=== PATIENT | male | born 1960 | race Caucasian/White ===

== ENCOUNTER 2016-07-05 02:28 | Emergency (ER) | payer MEDICAID ==
[2016-07-05 02:52] VITALS: BP 115/65
[2016-07-05] MEDS ORDERED: Acetaminophen TAB* 325 MG PO ONE (06:00)
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
== END 2016-07-05 06:45 | disposition home or self-care (01) ==
LOC: ED 02:28
DX: S20.219A Contusion of unspecified front wall of thorax, initial encounter (principal); F10.129 Alcohol abuse with intoxication, unspecified; Y04.0XXA Assault by unarmed brawl or fight, initial encounter; Y93.9 Activity, unspecified; Y92.9 Unspecified place or not applicable; Y99.9 Unspecified external cause status
CPT/HCPCS: 99282; A9270-GY

== ENCOUNTER 2016-07-13 02:02 | Emergency (ER) | payer MEDICAID ==
[2016-07-13 02:07] VITALS: BP 113/78
--- NOTE | 2016-07-13 02:20 | ED ---
Tl Zuleta Billy, scribed for Luigi Ross MD on 07/13/16 at 0209 . HPI Chest Pain - HPI Summary HPI Summary: 56 year-old male coming to the ED with a complaint of constant left anterior chest pain starting "several hours" ago. Severity 9/10. He states that the pain radiates to his LUE and neck. He also reports left arm numbness. No cough. He has no other complaints. - History of Current Complaint Chief Complaint: EDChestPainROMI Time Seen by Provider: 07/13/16 02:04 Hx Obtained From: Family/Claims Manager Onset/Duration: Started Hours Ago, Still Present Timing: Constant Initial Severity: Moderate Current Severity: Moderate Pain Intensity: 9 Pain Scale Used: 0-10 Numeric Chest Pain Location: Left Anterior Chest Pain Radiates: Yes Chest Pain Radiates To:: Arm, Neck Aggravating Factor(s): Nothing Alleviating Factor(s): Nothing Associated Signs and Symptoms: Positive: Numbness. Negative: Cough - Additional Pertinent History Primary Care Physician: LIA - Allergy/Home Medications Allergies/Adverse Reactions: Allergies Allergy/AdvReac Type Severity Reaction Status Date / Time No Known Allergies Allergy Verified 01/25/15 23:21 PMH/Surg Hx/FS Hx/Imm Hx Endocrine/Hematology History: Denies: Hx Anticoagulant Therapy, Hx Diabetes, Hx Thyroid Disease Cardiovascular History: Reports: Hx Angina, Hx Myocardial Infarction - per pt, Other Cardiovascular Problems/Disorders - PT. STATES IRREGULAR HEARTBEAT Denies: Hx Congestive Heart Failure, Hx Coronary Artery Disease, Hx Hypercholesterolemia, Hx Hypertension, Hx Pacemaker/ICD Respiratory History: Reports: Hx Asthma, Hx Chronic Bronchitis, Hx Chronic Obstructive Pulmonary Disease (COPD), Hx Sleep Apnea, Other Respiratory Problems /Disorders - COPD GI History: Denies: Hx Ulcer, Other GI Disorders History: Denies: Hx Renal Disease, Other Problems/Disorders Musculoskeletal History: Reports: Hx Orthopedic Injury - multiple broken bones Sensory History: Reports: Hx Contacts or Glasses Opthamlomology History: Reports: Hx Contacts or Glasses Neurological History: Reports: 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 Facial bone reconstruction. Right ankle. Bilateral Cheek bone repair. Nose repaired Hx Anesthesia Reactions: No - Immunization History Date of Tetanus Vaccine: Unknown Date of Influenza Vaccine: UNK Infectious Disease History: No Infectious Disease History: Reports: Hx Hepatitis - Hep C per EMR Denies: Hx Clostridium Difficile, Hx Human Immunodeficiency Virus (HIV), Hx Shingles, Hx Tuberculosis, Traveled Outside the [place] in Last 30 Days - Family History Known Family History: Positive: Cardiac Disease, Other - Alcohol abuse - Social History Alcohol Use: Daily Alcohol Amount: drank some today Hx Substance Use: Yes Substance Use Type: Reports: Cocaine, Marijuana, Other Substance Use Comment - Amount & Last Used: Unknown on all substances. PT poor with drug-use information. Hx Tobacco Use: Yes Smoking Status (MU): Light Every Day Tobacco Smoker Type: Cigarettes Length of Time of Smoking/Using Tobacco: 2+PPd Review of Systems Positive: Chest Pain Negative: Cough Positive: Numbness All Other Systems Reviewed And Are Negative: Yes Physical Exam Triage Information Reviewed: Yes Vital Signs On Initial Exam: Initial Vitals Temp Pulse Resp BP Pulse Ox 97.2 F 64 16 113/78 98 07/13/16 02:03 07/13/16 02:03 07/13/16 02:03 07/13/16 02:03 07/13/16 02:03 Vital Signs Reviewed: Yes Appearance: Positive: No Pain Distress, Thin Skin: Positive: Warm Head/Face: Positive: Normal Head/Face Inspection Eyes: Positive: NELLY ENT: Positive: Hearing grossly normal Neck: Positive: Supple Respiratory/Lung Sounds: Positive: Clear to Auscultation, Breath Sounds Present , Other - upper lt ant cwt to palp, same as presenting pain Cardiovascular: Positive: RRR Abdomen Description: Positive: Nontender, Soft Bowel Sounds: Positive: Present Musculoskeletal: Positive: Strength/ROM Intact Neurological: Positive: Sensory/Motor Intact Diagnostics - Vital Signs Vital Signs Temp Pulse Resp BP Pulse Ox 07/13/16 02:03 97.2 F 64 16 113/78 98 - Laboratory Lab Statement: Any lab studies that have been ordered have been reviewed, and results considered in the medical decision making process. - EKG 0208 EKG Interpretation: NSR 98 bpm, PVC Re-Evaluation - Re-Evaluation First Eval Change: Improved - pt feels better, ekg at baseline, recurrent issue, pt wants to go home will d/c Chest Pain Course/Dx - Diagnoses Provider Diagnoses: Chest pain, Alcohol intoxication Discharge - Discharge Plan Condition: Stable Disposition: HOME Patient Education Materials: Chest Pain (ED), Alcohol Intoxication (ED) Referrals: Rosamaria Zeng FOAM RUBBER CURER [Primary Care Provider] - Additional Instructions: FOLLOW UP WITH YOUR PRIMARY CARE PROVIDER. EAT A WELL-BALANCED DIET, AND AVOID ALCOHOL CONSUMPTION. The documentation as recorded by the Tl potter Billy accurately reflects the service I personally performed and the decisions made by me, Luigi Ross MD.
== END 2016-07-13 02:25 | disposition home or self-care (01) ==
LOC: ED 02:02
DX: R07.9 Chest pain, unspecified (principal); F10.129 Alcohol abuse with intoxication, unspecified
CPT/HCPCS: 93005; 99282

== ENCOUNTER 2016-07-13 20:56 | Emergency (ER) | payer MEDICAID ==
[2016-07-13 23:14] LABS: Hematocrit 39 % (42-52); Hemoglobin 13.1 g/dl (14.0-18.0); Mean Corpuscular HGB Conc 33 g/dl (31-36); Mean Corpuscular Hemoglobin 34 pg (27-31); Mean Corpuscular Volume 102 fL (80-94); Mean Platelet Volume 11 um3 (7.4-10.4); Red Blood Count 3.82 10^6/ul (4.0-5.4); Red Cell Distribution Width 15 % (10.5-15); White Blood Count 6.4 10^3/ul (3.5-10.8)
--- NOTE | 2016-07-13 23:15 | RAD ---
Indication: Chest pain Single frontal view of the chest performed at 2257 hours was reviewed. Comparison is made with previous exam dated July 02, 2016. No mediastinal shift is noted. Heart is of normal size and configuration. Lung rosales appear clear. IMPRESSION: NO ACTIVE CARDIOPULMONARY DISEASE IS NOTED.
[2016-07-13 23:33] LABS: Albumin 3.7 g/dL (3.2-5.2); Calcium 8.7 mg/dL (8.6-10.3); EGFR African American 118.3 (>60); Potassium 3.5 mmol/L (3.5-5.0); Total Bilirubin 0.5 mg/dL (0.2-1.0); Total Protein 6.7 g/dL (6.4-8.9)
[2016-07-13 23:35] LABS: Comments Flag Yes
[2016-07-13 23:37] LABS: Add Diff/Slide Review? Slide Review Added; Troponin I 0.01 ng/mL (<0.04)
[2016-07-14] MEDS ORDERED: NS 0.9% 1000 ML* 1,000 ML IV ONE (00:11)
[2016-07-14 02:18] VITALS: BP 139/72
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
== END 2016-07-14 02:10 | disposition home or self-care (01) ==
LOC: ED 20:56
DX: R07.9 Chest pain, unspecified (principal)
CPT/HCPCS: 36415; 71010; 80053; 82550; 82553; 83605; 83874; 83880; 84484; 85025; 85610; 85730; 93005; 99282

== ENCOUNTER 2016-07-19 21:54 | Emergency (ER) | payer MEDICAID ==
[2016-07-19] MEDS ORDERED: Thiamine IV* 100 MG, Folic Acid IV* 1 MG, Multiple Vitamin IV ADULT* 10 ML in NS 0.9% 1... IV ONE ×8 (22:08)
[2016-07-19 22:44] LABS: Urine Bilirubin Negative (Negative); Urine Glucose Negative (Negative); Urine Nitrite Negative (Negative)
[2016-07-19 22:53] LABS: Benzodiazepine Urine Screen None Detected (None Detect)
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
--- NOTE | 2016-07-19 22:59 | RAD ---
INDICATION: Right knee pain COMPARISON: None TECHNIQUE: AP, lateral, tunnel, and sunrise were obtained. FINDINGS: The bony structures, joint spaces, and soft tissues are normal for age. IMPRESSION: NO ACUTE BONY FINDINGS.
[2016-07-19] MEDS ORDERED: Nicotine Inhaler* 10 MG AMP INH ONE (23:36)
[2016-07-19] MEDS ORDERED: Mouth Piece, Nicotine* 1 EACH CARTRIDGE ONE (23:37)
[2016-07-19] MEDS ORDERED: Nicotine Inhaler* 10 MG AMP ONE ×2 (23:37)
[2016-07-19 23:44] LABS: Hematocrit 37 % (42-52); Hemoglobin 12.4 g/dl (14.0-18.0); Mean Corpuscular HGB Conc 34 g/dl (31-36); Mean Corpuscular Hemoglobin 34 pg (27-31); Mean Corpuscular Volume 102 fL (80-94); Mean Platelet Volume 11 um3 (7.4-10.4); Red Blood Count 3.62 10^6/ul (4.0-5.4); Red Cell Distribution Width 15 % (10.5-15); White Blood Count 5.5 10^3/ul (3.5-10.8)
[2016-07-19 23:47] LABS: Add Diff/Slide Review? Slide Review Added; Comments Flag Yes
[2016-07-19] MEDS ORDERED: Tetan/Diph/Pertus SYR(Tdap)* 0.5 ML SYR(BOOSTRIX) use SYR IM ONE (23:52)
[2016-07-19 23:55] LABS: Alcohol 302 mg/dL (<10)
[2016-07-19 23:56] LABS: ALT 22 U/L (7-52); Albumin 4.3 g/dL (3.2-5.2); Alkaline Phosphatase 54 U/L (34-104); BUN/Creatinine Ratio 7.4 (8-20); Blood Urea Nitrogen 5 mg/dL (6-24); CO2 Carbon Dioxide 22 mmol/L (22-32); Calcium 9.2 mg/dL (8.6-10.3); Chloride 102 mmol/L (101-111); EGFR African American 155.1 (>60); EGFR Non-African American 120.6 (>60); Glucose 63 mg/dL (70-100); Sodium 133 mmol/L (133-145); Total Protein 7.3 g/dL (6.4-8.9)
[2016-07-20 00:42] LABS: Burr Cells 1+; Hypochromasia 1+; Macrocytosis 1+; Spherocytes 1+; Target Cells 1+
--- NOTE | 2016-07-20 00:52 | ED ---
Progress - EKG/XRAY/CT CT: normal brain Course/Dx - Course Course Of Treatment: pt discharged in stable condition - Diagnoses Provider Diagnoses: Scalp contusion, Abrasion
[2016-07-20 01:19] VITALS: BP 109/40
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
--- NOTE | 2016-09-26 09:52 | ED ---
I, Lobo Gillespie, scribed for Estela Heck MD on 07/20/16 at 0055 . Progress - Progress Note Progress Note: signout pt from Dr. Olivarez. Waiting for CT results. - Results/Orders Results/Orders: CT Brain WO: NAD. CT Maxillofacial WO: NAD. - EKG/XRAY/CT CT: normal brain Course/Dx - Course Course Of Treatment: pt discharged in stable condition - Diagnoses Provider Diagnoses: Scalp contusion, Abrasion The documentation as recorded by the fransiscoibJose Miguel espinal Benjamin accurately reflects the service I personally performed and the decisions made by me, Estela Heck MD.
== END 2016-07-20 01:18 | disposition home or self-care (01) ==
LOC: ED 21:54
DX: S00.03XA Contusion of scalp, initial encounter (principal); S00.01XA Abrasion of scalp, initial encounter; X58.XXXA Exposure to other specified factors, initial encounter; Y92.9 Unspecified place or not applicable
CPT/HCPCS: 36415; 70450; 70486; 71010; 80053; 80307; 80320; 81003; 85025; 90715; 99283; A9270-GY; G0480; J3411

== ENCOUNTER 2016-09-24 00:47 | Emergency (ER) | payer MEDICAID ==
[2016-09-24 01:42] LABS: Hematocrit 33 % (42-52); Hemoglobin 11.5 g/dl (14.0-18.0); Mean Corpuscular HGB Conc 34 g/dl (31-36); Mean Corpuscular Hemoglobin 33 pg (27-31); Mean Corpuscular Volume 95 fL (80-94); Mean Platelet Volume 11 um3 (7.4-10.4); Red Cell Distribution Width 13 % (10.5-15); White Blood Count 9.5 10^3/ul (3.5-10.8)
[2016-09-24 01:57] LABS: BUN/Creatinine Ratio 9.5 (8-20); Calcium 9.1 mg/dL (8.6-10.3); EGFR African American 140.7 (>60); EGFR Non-African American 109.4 (>60); Magnesium 1.8 mg/dL (1.9-2.7); Potassium 3.8 mmol/L (3.5-5.0); Total Bilirubin 0.8 mg/dL (0.2-1.0)
[2016-09-24 05:49] VITALS: BP 111/61
--- NOTE | 2016-09-24 06:19 | ED ---
Tonia Zuleta Michael, scribed for Luigi Ross MD on 09/24/16 at 0120 . HPI Chest Pain - HPI Summary HPI Summary: 56 y/o male was BIBA to the ED presenting with sharp chest pain that started today. The pt approached was at [facility] when he suddenly started to have diffuse chest pain. In the ambulance he was given 324mg ASA and 1x 0.4mg SL Nitro en route per nurse note. He also c/o generalized myalgia and dizziness. The pt reports to drinking alcohol all day. The PMHx is significant for dysrhythmia, COPD, and ETOH abuse. - History of Current Complaint Chief Complaint: EDChestPainROMI Time Seen by Provider: 09/24/16 00:57 Hx Obtained From: Patient, EMS, Medical Records Onset/Duration: Started Hours Ago, Still Present Timing: Constant Initial Severity: Moderate Current Severity: Moderate Pain Intensity: 5 Pain Scale Used: 0-10 Numeric Chest Pain Location: Diffuse Chest Pain Radiates: No Character: Sharp/Stabbing Aggravating Factor(s): Nothing Associated Signs and Symptoms: Positive: Chest Pain, Dizziness, Other: - myalgia - Additional Pertinent History Primary Care Physician: [id number] - Allergy/Home Medications Allergies/Adverse Reactions: Allergies Allergy/AdvReac Type Severity Reaction Status Date / Time No Known Allergies Allergy Verified 01/25/15 23:21 PMH/Surg Hx/FS Hx/Imm Hx Endocrine/Hematology History: Denies: Hx Anticoagulant Therapy, Hx Diabetes, Hx Thyroid Disease Cardiovascular History: Reports: Hx Angina, Hx Myocardial Infarction - per pt, Other Cardiovascular Problems/Disorders - PT. STATES IRREGULAR HEARTBEAT Denies: Hx Congestive Heart Failure, Hx Coronary Artery Disease, Hx Hypercholesterolemia, Hx Hypertension, Hx Pacemaker/ICD Respiratory History: Reports: Hx Asthma, Hx Chronic Bronchitis, Hx Chronic Obstructive Pulmonary Disease (COPD), Hx Sleep Apnea, Other Respiratory Problems /Disorders - COPD GI History: Reports: Hx Gastroesophageal Reflux Disease Denies: Hx Ulcer, Other GI Disorders History: Denies: Hx Renal Disease, Other Problems/Disorders Musculoskeletal History: Reports: Hx Orthopedic Injury - multiple broken bones Sensory History: Reports: Hx Contacts or Glasses Opthamlomology History: Reports: Hx Contacts or Glasses Neurological History: Reports: 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 Facial bone reconstruction. Right ankle. Bilateral Cheek bone repair. Nose repaired Hx Anesthesia Reactions: No - Immunization History Date of Tetanus Vaccine: Unknown Date of Influenza Vaccine: UNK Infectious Disease History: No Infectious Disease History: Reports: Hx Hepatitis - Hep C per EMR Denies: Hx Clostridium Difficile, Hx Human Immunodeficiency Virus (HIV), Hx Shingles, Hx Tuberculosis, Traveled Outside the [place] in Last 30 Days - Family History Known Family History: Positive: Cardiac Disease, Other - Alcohol abuse - Social History Occupation: Unemployed Lives: With Family Alcohol Use: Daily Alcohol Amount: drank some today Hx Substance Use: Yes Substance Use Type: Reports: Cocaine, Marijuana, Other Substance Use Comment - Amount & Last Used: Unknown on all substances. PT poor with drug-use information. Hx Tobacco Use: Yes Smoking Status (MU): Light Every Day Tobacco Smoker Type: Cigarettes Length of Time of Smoking/Using Tobacco: 2+PPd Review of Systems Positive: Chest Pain Positive: Myalgia Neurological: Other - dizziness All Other Systems Reviewed And Are Negative: Yes Physical Exam Triage Information Reviewed: Yes Vital Signs On Initial Exam: Initial Vitals Temp Pulse Resp BP Pulse Ox 98 F 69 16 125/65 98 09/24/16 01:01 09/24/16 01:01 09/24/16 01:01 09/24/16 01:01 09/24/16 01:01 Vital Signs Reviewed: Yes Appearance: Positive: No Pain Distress, Thin Skin: Positive: Warm Head/Face: Positive: Normal Head/Face Inspection Eyes: Positive: NELLY ENT: Positive: Hearing grossly normal Neck: Positive: Supple Respiratory/Lung Sounds: Positive: Breath Sounds Present, Decreased Breath Sounds Cardiovascular: Positive: RRR Abdomen Description: Positive: Nontender, Soft Bowel Sounds: Positive: Present Musculoskeletal: Positive: Strength/ROM Intact - [place] Coma Scale Coma Scale Total: 15 Diagnostics - Vital Signs Vital Signs Temp Pulse Resp BP Pulse Ox 09/24/16 01:01 98 F 69 16 125/65 98 - Laboratory Lab Results: Lab Results 09/24/16 09/24/16 Range/Units 01:30 01:30 WBC 9.5 (3.5-10.8) 10^3/ul RBC 3.50 L (4.0-5.4) 10^6/ul Hgb 11.5 L (14.0-18.0) g/dl Hct 33 L (42-52) % MCV 95 H (80-94) fL MCH 33 H (27-31) pg MCHC 34 (31-36) g/dl RDW 13 (10.5-15) % Plt Count 263 (150-450) 10^3/ul MPV 11 H (7.4-10.4) um3 Neut % (Auto) 49.1 (38-83) % Lymph % (Auto) 38.9 (25-47) % [place] % (Auto) 9.6 H (1-9) % Eos % (Auto) 1.4 (0-6) % Baso % (Auto) 1.0 (0-2) % Absolute Neuts (auto) 4.7 (1.5-7.7) 10^3/ul Absolute Lymphs (auto) 3.7 (1.0-4.8) 10^3/ul Absolute Monos (auto) 0.9 H (0-0.8) 10^3/ul Absolute Eos (auto) 0.1 (0-0.6) 10^3/ul Absolute Basos (auto) 0.1 (0-0.2) 10^3/ul Absolute Nucleated RBC 0 10^3/ul Nucleated RBC % 0.1 Sodium 135 (133-145) mmol/L Potassium 3.8 (3.5-5.0) mmol/L Chloride 100 L (101-111) mmol/L Carbon Dioxide 24 (22-32) mmol/L Anion Gap 11 (2-11) mmol/L BUN 7 (6-24) mg/dL Creatinine 0.74 (0.67-1.17) mg/dL Est GFR ( Amer) 140.7 (>60) Est GFR (Non-Af Amer) 109.4 (>60) BUN/Creatinine Ratio 9.5 (8-20) Glucose 99 (70-100) mg/dL Calcium 9.1 (8.6-10.3) mg/dL Magnesium 1.8 L (1.9-2.7) mg/dL Total Bilirubin 0.80 (0.2-1.0) mg/dL AST 49 H (13-39) U/L ALT 27 (7-52) U/L Alkaline Phosphatase 59 (34-104) U/L Total Protein 7.0 (6.4-8.9) g/dL Albumin 4.0 (3.2-5.2) g/dL Globulin 3.0 (2-4) g/dL Albumin/Globulin Ratio 1.3 (1-3) Serum Alcohol 200 H (<10) mg/dL Result Diagrams: 09/24/16 01:30 09/24/16 01:30 Lab Statement: Any lab studies that have been ordered have been reviewed, and results considered in the medical decision making process. - EKG EK EKG Rhythm: Sinus Rhythm - [address] Segment: Normal Ectopy: None Re-Evaluation - Re-Evaluation First Eval Change: Improved - pain free, feels well, wants to go home Chest Pain Course/Dx - Diagnoses Provider Diagnoses: Chest pain, Alcohol abuse Discharge - Discharge Plan Condition: Stable Disposition: HOME Patient Education Materials: Chest Pain (ED), Abuse of Alcohol (ED) Referrals: Rosamaria Zeng, LEAD ASSEMBLER [Primary Care Provider] - Additional Instructions: You should follow up with Dr. Zeng within the next 2-3 days. The documentation as recorded by the Tonia potter Michael accurately reflects the service I personally performed and the decisions made by me, Luigi Ross MD.
== END 2016-09-24 05:48 | disposition home or self-care (01) ==
LOC: ED 00:47
DX: F10.10 Alcohol abuse, uncomplicated (principal); R07.9 Chest pain, unspecified; R42 Dizziness and giddiness; F17.210 Nicotine dependence, cigarettes, uncomplicated
CPT/HCPCS: 36415; 80053; 80320; 83735; 85025; 93005; 99284; G0480

== ENCOUNTER 2016-09-25 19:03 | Emergency (ER) | payer MEDICAID ==
--- NOTE | 2016-09-25 21:22 | ED ---
Tl Zuleta Billy, scribed for Luigi Ross MD on 09/25/16 at 2000 . HPI Chest Pain - HPI Summary HPI Summary: Patient is a 56 year-old male coming to [facility] presenting with diffuse chest pain for 2 days. Pain severity 6/10. He was seen in the ED yesterday and was given NTG with improvement. He denies any SOB at this time. He also reports left hand pain. - History of Current Complaint Chief Complaint: EDChestPainROMI Time Seen by Provider: 09/25/16 19:23 Hx Obtained From: Patient Onset/Duration: Started Days Ago Timing: Constant Initial Severity: Moderate Current Severity: Moderate Pain Intensity: 6 Pain Scale Used: 0-10 Numeric Chest Pain Location: Diffuse Chest Pain Radiates: No Aggravating Factor(s): Nothing Alleviating Factor(s): NTG 123 Associated Signs and Symptoms: Positive: Chest Pain. Negative: Shortness of Breath - Additional Pertinent History Primary Care Physician: LIA - Allergy/Home Medications Allergies/Adverse Reactions: Allergies Allergy/AdvReac Type Severity Reaction Status Date / Time No Known Allergies Allergy Verified 01/25/15 23:21 PMH/Surg Hx/FS Hx/Imm Hx Endocrine/Hematology History: Denies: Hx Anticoagulant Therapy, Hx Diabetes, Hx Thyroid Disease Cardiovascular History: Reports: Hx Angina, Hx Myocardial Infarction - per pt, Other Cardiovascular Problems/Disorders - PT. STATES IRREGULAR HEARTBEAT Denies: Hx Congestive Heart Failure, Hx Coronary Artery Disease, Hx Hypercholesterolemia, Hx Hypertension, Hx Pacemaker/ICD Respiratory History: Reports: Hx Asthma, Hx Chronic Bronchitis, Hx Chronic Obstructive Pulmonary Disease (COPD), Hx Sleep Apnea, Other Respiratory Problems /Disorders - COPD GI History: Reports: Hx Gastroesophageal Reflux Disease Denies: Hx Ulcer, Other GI Disorders History: Denies: Hx Renal Disease, Other Problems/Disorders Musculoskeletal History: Reports: Hx Orthopedic Injury - multiple broken bones Sensory History: Reports: Hx Contacts or Glasses Opthamlomology History: Reports: Hx Contacts or Glasses Neurological History: Reports: 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 Facial bone reconstruction. Right ankle. Bilateral Cheek bone repair. Nose repaired Hx Anesthesia Reactions: No - Immunization History Date of Tetanus Vaccine: Unknown Date of Influenza Vaccine: UNK Infectious Disease History: No Infectious Disease History: Reports: Hx Hepatitis - Hep C per EMR Denies: Hx Clostridium Difficile, Hx Human Immunodeficiency Virus (HIV), Hx Shingles, Hx Tuberculosis, Traveled Outside the [place] in Last 30 Days - Family History Known Family History: Positive: Cardiac Disease, Other - Alcohol abuse - Social History Alcohol Use: Daily Alcohol Amount: drank some today Hx Substance Use: Yes Substance Use Type: Reports: Cocaine, Marijuana, Other Substance Use Comment - Amount & Last Used: Unknown on all substances. PT poor with drug-use information. Hx Tobacco Use: Yes Smoking Status (MU): Light Every Day Tobacco Smoker Type: Cigarettes Length of Time of Smoking/Using Tobacco: 2+PPd Review of Systems Negative: Fever Positive: Chest Pain Negative: Shortness Of Breath Positive: Arthralgia - left hand All Other Systems Reviewed And Are Negative: Yes Physical Exam Triage Information Reviewed: Yes Vital Signs On Initial Exam: Initial Vitals Temp Pulse Resp BP Pulse Ox 98.5 F 86 16 147/84 98 09/25/16 19:13 09/25/16 19:13 09/25/16 19:13 09/25/16 19:13 09/25/16 19:13 Vital Signs Reviewed: Yes Appearance: Positive: No Pain Distress - beligerent in ed to staff, Thin Head/Face: Positive: Normal Head/Face Inspection Eyes: Positive: NELLY ENT: Positive: Hearing grossly normal Neck: Positive: Supple Respiratory/Lung Sounds: Positive: Breath Sounds Present Cardiovascular: Positive: RRR Abdomen Description: Positive: Nontender, Soft Bowel Sounds: Positive: Present Musculoskeletal: Positive: Other - mild diffuse lt hand swelling, no deformity, from Neurological: Positive: Sensory/Motor Intact, Alert, Oriented to Person Place, Time Psychiatric: Positive: Anxious Diagnostics - Vital Signs Vital Signs Temp Pulse Resp BP Pulse Ox 09/25/16 19:13 98.5 F 86 16 147/84 98 - Laboratory Lab Statement: Any lab studies that have been ordered have been reviewed, and results considered in the medical decision making process. - Radiology Left hand x-ray Xray Interpretation: No Acute Changes Radiology Interpretation Completed By: ED Physician - EKG 2022 EKG Interpretation: NSR 97 bpm, occasional PVC Re-Evaluation - Re-Evaluation First Eval Re-Evaluation Time: 21:23 Comment: Imaging reviewed. Chest Pain Course/Dx - Diagnoses Provider Diagnoses: Hand contusion Discharge - Discharge Plan Condition: Stable Disposition: HOME Patient Education Materials: Contusion in Adults (ED) Referrals: Rosamaria Zeng, WEB SERVICES DEVELOPER [Primary Care Provider] - The documentation as recorded by the Tl potter Billy accurately reflects the service I personally performed and the decisions made by me, Luigi Ross MD.
--- NOTE | 2016-09-25 21:49 | RAD ---
Indication: LEFT hand pain without known injury. Previous traumatic injury to the fifth finger. Comparison: January 18, 2013 LEFT hand and April 30, 2014 LEFT fifth finger. Technique: AP and lateral views LEFT hand Report: Negative for fracture or malalignment. Joint space narrowing and osteophytosis as well as mild periarticular soft tissue swelling at the fifth proximal interphalangeal joint. The remaining articulations are without significant arthropathic change. IMPRESSION: 1. No acute traumatic injury evident. 2. 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
[2016-09-25 22:11] VITALS: BP 120/72
== END 2016-09-25 21:36 | disposition home or self-care (01) ==
LOC: ED 19:03
DX: S60.222A Contusion of left hand, initial encounter (principal); R07.9 Chest pain, unspecified; M79.642 Pain in left hand; F17.210 Nicotine dependence, cigarettes, uncomplicated; X58.XXXA Exposure to other specified factors, initial encounter; Y93.89 Activity, other specified; Y92.89 Other specified places as the place of occurrence of the external cause
CPT/HCPCS: 93005; 99282

== ENCOUNTER 2016-10-05 11:10 | Emergency (ER) | payer MEDICAID ==
[2016-10-05 11:34] VITALS: BP 135/76
[2016-10-05] MEDS ORDERED: Ibuprofen TAB* 600 MG PO ONE (12:43)
--- NOTE | 2016-10-05 12:54 | RAD ---
INDICATION: Left ankle injury COMPARISON: Left lower extremity June 13, 2010 TECHNIQUE: AP, lateral, and oblique views were obtained. FINDINGS: There is interval change in the trabecular pattern of the body of the calcaneus suggesting a nondisplaced fracture. The ankle mortise is intact. There is mild diffuse soft tissue swelling. IMPRESSION: FINDINGS SUSPICIOUS FOR A FRACTURE THE BODY OF THE CALCANEUS
[2016-10-05] MEDS ORDERED: HYDROcodone/ACETAMIN 5-325 MG* 1 TAB PO ONE (13:46)
--- NOTE | 2016-12-20 17:11 | ED ---
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 He can bear weight on the foot if he walks on his toes, but the pain has just gotten worse. He has mild swelling and bruising without N/ T. Skin is intact. - History of Current Complaint Chief Complaint: EDExtremityLower Stated Complaint: ANKLE INJURY Time Seen by Provider: 10/05/16 11:35 Hx Obtained From: Patient Mechanism Of Injury: Blunt Trauma - ground Onset of Pain: Immediate Onset/Duration: Still Present Severity Initially: Moderate Severity Currently: Moderate Pain Intensity: 5 Timing: Constant Location: Is Discrete @ - left heel Character Of Pain: Sharp, Aching Associated Signs And Symptoms: Positive: Swelling - mild, Bruising Aggravating Factor(s): Standing Alleviating Factor(s): Rest Able to Bear Weight: Yes - with pain - Allergies/Home Medications Allergies/Adverse Reactions: Allergies Allergy/AdvReac Type Severity Reaction Status Date / Time No Known Allergies Allergy Verified 01/25/15 23:21 PMH/Surg Hx/FS Hx/Imm Hx Endocrine/Hematology History: Denies: Hx Anticoagulant Therapy, Hx Diabetes, Hx Thyroid Disease Cardiovascular History: Reports: Hx Angina, Hx Myocardial Infarction - per pt, Other Cardiovascular Problems/Disorders - PT. STATES IRREGULAR HEARTBEAT Denies: Hx Congestive Heart Failure, Hx Coronary Artery Disease, Hx Hypercholesterolemia, Hx Hypertension, Hx Pacemaker/ICD Respiratory History: Reports: Hx Asthma, Hx Chronic Bronchitis, Hx Chronic Obstructive Pulmonary Disease (COPD), Hx Sleep Apnea, Other Respiratory Problems /Disorders - COPD GI History: Reports: Hx Gastroesophageal Reflux Disease Denies: Hx Ulcer, Other GI Disorders History: Denies: Hx Renal Disease, Other Problems/Disorders Musculoskeletal History: Reports: Hx Orthopedic Injury - multiple broken bones Sensory History: Reports: Hx Contacts or Glasses Opthamlomology History: Reports: Hx Contacts or Glasses Neurological History: Reports: 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 Facial bone reconstruction. Right ankle. Bilateral Cheek bone repair. Nose repaired Hx Anesthesia Reactions: No - Immunization History Date of Tetanus Vaccine: Unknown Date of Influenza Vaccine: UNK Infectious Disease History: No Infectious Disease History: Reports: Hx Hepatitis - Hep C per EMR Denies: Hx Clostridium Difficile, Hx Human Immunodeficiency Virus (HIV), Hx Shingles, Hx Tuberculosis, Traveled Outside the [place] in Last 30 Days - Family History Known Family History: Positive: Cardiac Disease, Other - Alcohol abuse - Social History Occupation: Unemployed Lives: Alone Alcohol Use: Daily Alcohol Amount: drank some today Hx Substance Use: Yes Substance Use Type: Reports: None Substance Use Comment - Amount & Last Used: Unknown on all substances. PT poor with drug-use information. Hx Tobacco Use: Yes Smoking Status (MU): Light Every Day Tobacco Smoker Type: Cigarettes Length of Time of Smoking/Using Tobacco: 2+PPd Cessation Counseling: Patient Advised to Stop Review of Systems Positive: Myalgia, Edema - left heel Positive: Bruising - mild left heel Negative: Paresthesia, Numbness All Other Systems Reviewed And Are Negative: Yes Physical Exam Triage Information Reviewed: Yes Vital Signs On Initial Exam: Initial Vitals Temp Pulse Resp BP Pulse Ox 98.9 F 91 16 135/76 95 10/05/16 11:25 10/05/16 11:25 10/05/16 11:25 10/05/16 11:25 10/05/16 11:25 Vital Signs Reviewed: Yes Appearance: Positive: Well-Appearing, Well-Nourished, Pain Distress Skin: Positive: Warm, Skin Color Reflects Adequate Perfusion, Dry, Soft Head/Face: Positive: Normal Head/Face Inspection Eyes: Positive: EOMI, NELLY, Conjunctiva Clear Respiratory/Lung Sounds: Positive: Breath Sounds Present Cardiovascular: Positive: RRR Musculoskeletal: Positive: Strength/ROM Intact - left ankle with pain, Pain @ - TTP left calcaneus, Edema Left - left heel Neurological: Positive: Sensory/Motor Intact, Alert, Oriented to Person Place, Time, NV Bundle Intact Distally, Abnormal Gait Psychiatric: Positive: Affect/Mood Appropriate AVPU Assessment: Alert Procedures - Splinting Location: left lower extremity Pre-Made Type: Cam working boot Splint: Cam walking boot Pre-Proc Neuro Vasc Exam: normal Post-Proc Neuro Vasc Exam: normal Diagnostics - Vital Signs Vital Signs Temp Pulse Resp BP Pulse Ox 10/05/16 14:09 98.5 F 110 18 10/05/16 11:25 98.9 F 91 16 135/76 95 - Laboratory Lab Statement: Any lab studies that have been ordered have been reviewed, and results considered in the medical decision making process. - Radiology No standard instances Xray Interpretation: Positive (See Comments) Radiology Interpretation Completed By: Radiologist - calcaneus fracture Lower Extremity Course/Dx - Diagnoses Differential Diagnosis/HQI/PQRI: Positive: Arthritis, Bursitis, Cellulitis, Contusion, Fracture (Closed), Infection, Sprain, Strain Provider Diagnoses: Left calcaneal fracture Discharge - Discharge Plan Condition: Stable Disposition: HOME Prescriptions: HYDROcodone/ACETAMIN 5-325 MG* [[place] 5-325 TAB*] 1 tab PO Q6H PRN #16 tab MDD 4 PRN Reason: Pain Patient Education Materials: Calcaneal Fracture (ED) Referrals: Hector Madrigal MD [Medical Doctor] - Rosamaria Zeng NP [Primary Care Provider] - Additional Instructions: Please wear your boot at all times and use the crutches to keep weight off your foot. Elevate your foot above your heart and take 600mg of ibuprofen three times daily with meals for the next 5-7 days to decrease swelling and pain. Use the pain medication as needed. Call Dr. Madrigal's office today for an orthopedic evaluation appointment. Return to the emergency department if symptoms worsen.
== END 2016-10-05 14:09 | disposition home or self-care (01) ==
LOC: ED 11:10
DX: S92.002A Unspecified fracture of left calcaneus, initial encounter for closed fracture (principal); X50.9XXA Other and unspecified overexertion or strenuous movements or postures, initial encounter; Y93.9 Activity, unspecified; Y92.9 Unspecified place or not applicable; F17.210 Nicotine dependence, cigarettes, uncomplicated
CPT/HCPCS: 99282; A9270-GY

== ENCOUNTER 2017-06-04 10:59 | Inpatient (IN) | payer OTHER ==
[2017-06-04 12:05] LABS: Hematocrit 43 % (42-52); Hemoglobin 14.4 g/dl (14.0-18.0); Mean Corpuscular HGB Conc 34 g/dl (31-36); Mean Corpuscular Hemoglobin 33 pg (27-31); Mean Corpuscular Volume 97 fL (80-94); Mean Platelet Volume 11 um3 (7.4-10.4); Red Blood Count 4.38 10^6/ul (4.0-5.4); Red Cell Distribution Width 13 % (10.5-15); White Blood Count 11.5 10^3/ul (3.5-10.8)
[2017-06-04 12:10] LABS: Add Diff/Slide Review? Slide Review Added; Comments Flag Yes
[2017-06-04 12:20] LABS: ALT 19 U/L (7-52); AST 33 U/L (13-39); Albumin 4.8 g/dL (3.2-5.2); Alkaline Phosphatase 61 U/L (34-104); Anion Gap 14 mmol/L (2-11); BUN/Creatinine Ratio 7.5 (8-20); Blood Urea Nitrogen 7 mg/dL (6-24); CO2 Carbon Dioxide 21 mmol/L (22-32); Calcium 9.8 mg/dL (8.6-10.3); Chloride 97 mmol/L (101-111); EGFR African American 107.7 (>60); EGFR Non-African American 83.7 (>60); Globulin 3.5 g/dL (2-4); Glucose 111 mg/dL (70-100); Potassium 3.5 mmol/L (3.5-5.0); Sodium 132 mmol/L (133-145); Total Protein 8.3 g/dL (6.4-8.9)
[2017-06-04 12:32] LABS: Troponin I 0.06 ng/mL (<0.04)
--- NOTE | 2017-06-04 12:49 | RAD ---
INDICATION: Left foot injury. COMPARISON: Comparison is made with a prior x-ray study of the left ankle from October 05, 2016. TECHNIQUE: 3 views of the left foot were obtained. FINDINGS: The bones are normal alignment. No fracture is seen. Joint spaces appear maintained. There are small calcaneal spurs. IMPRESSION: NO EVIDENCE FOR FRACTURE, IF THE PATIENT'S SYMPTOMS PERSIST RECOMMEND FOLLOW-UP IMAGING.
[2017-06-04 13:11] LABS: Acetaminophen < 15 mcg/mL; Salicylate < 2.50 mg/dL (<30)
--- NOTE | 2017-06-04 15:00 | ED ---
Leon Zuleta Gabriel, scribed for Alexander Olvera MD on 06/04/17 at 1113 . Altered Mental Status - HPI Summary HPI Summary: This patient is a 57 year old M BIBA to [facility] accompanied by a curve cleaner. The patient is unresponsive and will not open his eyes. The guard accompanying him reports that the patient has been screaming and singing recently but says the patient has suffered no trauma. Patient brought in by EMS for AMS, at the retirement, was told that his sentence was extended and stopped taking his medication. Per EMS meds stopped 5 days ago. Patient stopped talking to staff today and will not open his eyes. No obvious distress or injury. Patient refusing to speak. Moves all four extremities. triage note. LEVEL 5 CAVEAT: HPI limited due to the patient being unresponsive. - History Of Current Complaint Stated Complaint: UNRESPONSIVE Time Seen by Provider: 06/04/17 11:05 Hx Obtained From: Medical Records, Other: - curve cleaner Onset/Duration: Still Present Timing: Constant Character: Responsiveness - Allergies/Home Medications Allergies/Adverse Reactions: Allergies Allergy/AdvReac Type Severity Reaction Status Date / Time No Known Allergies Allergy Verified 01/25/15 23:21 Home Medications: Home Medications Folic Acid TAB* [Folvite TAB*] 1 mg PO DAILY 06/04/17 [History Confirmed ] Metoprolol Tartrate TAB* [Lopressor TAB*] 50 mg PO BID 06/04/17 [History Confirmed 06/04/17] Multivitamins/Minerals TAB* [Theragran/minerals TAB*] 1 tab PO DAILY 06/04/17 [ History Confirmed 06/04/17] Omeprazole CAP* [Prilosec CAP* 20 MG] 20 mg PO DAILY 06/04/17 [History Confirmed 06/04/17] Sertraline* [Zoloft*] 100 mg PO DAILY 06/04/17 [History Confirmed 06/04/17] Thiamine TAB* [Vitamin B-1 TAB*] 100 mg PO DAILY 06/04/17 [History Confirmed 07/21] cloNIDine TAB* [Catapres 0.1 MG TAB*] 0.1 mg PO BID 06/04/17 [History Confirmed 06/04/17] PMH/Surg Hx/FS Hx/Imm Hx Previously Healthy: No Endocrine/Hematology History: Denies: Hx Anticoagulant Therapy, Hx Diabetes, Hx Thyroid Disease Cardiovascular History: Reports: Hx Angina, Hx Myocardial Infarction - per pt, Other Cardiovascular Problems/Disorders - PT. STATES IRREGULAR HEARTBEAT Denies: Hx Congestive Heart Failure, Hx Coronary Artery Disease, Hx Hypercholesterolemia, Hx Hypertension, Hx Pacemaker/ICD Respiratory History: Reports: Hx Asthma, Hx Chronic Bronchitis, Hx Chronic Obstructive Pulmonary Disease (COPD), Hx Sleep Apnea, Other Respiratory Problems /Disorders - COPD GI History: Reports: Hx Gastroesophageal Reflux Disease Denies: Hx Ulcer, Other GI Disorders History: Denies: Hx Renal Disease, Other Problems/Disorders Musculoskeletal History: Reports: Hx Orthopedic Injury - multiple broken bones Sensory History: Reports: Hx Contacts or Glasses Opthamlomology History: Reports: Hx Contacts or Glasses Neurological History: Reports: 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 Facial bone reconstruction. Right ankle. Bilateral Cheek bone repair. Nose repaired Hx Anesthesia Reactions: No - Immunization History Date of Tetanus Vaccine: Unknown Date of Influenza Vaccine: UNK Infectious Disease History: Reports: Hx Hepatitis - Hep C per EMR Denies: Hx Clostridium Difficile, Hx Human Immunodeficiency Virus (HIV), Hx Shingles, Hx Tuberculosis - Family History Known Family History: Positive: Cardiac Disease, Other - Alcohol abuse - Social History Alcohol Use: Daily Alcohol Amount: drank some today Hx Substance Use: Yes Substance Use Type: Reports: None Substance Use Comment - Amount & Last Used: Unknown on all substances. PT poor with drug-use information. Hx Tobacco Use: Yes Smoking Status (MU): Light Every Day Tobacco Smoker Type: Cigarettes Length of Time of Smoking/Using Tobacco: 2+PPd Review of Systems - ROS Summary Review of Systems Summary: LEVEL 5 CAVEAT: ROS limited due to the patient being unresponsive. Psychological: Other - AMS All Other Systems Reviewed And Are Negative: No Physical Exam - Summary Physical Exam Summary: Appearance: The patient is well-nourished in no acute distress and in no acute pain. Patient resists having his eyes passively opened. Skin: The skin is warm and dry and skin color reflects adequate perfusion. Abrasion on left knee old and left elbow that appear to be a few days old. HEENT: ~The head is normocephalic and atraumatic. The pupils are equal and reactive. The conjunctivae are clear and without drainage. ~Nares are patent and without drainage. ~Mouth reveals moist mucous membranes and the throat is without erythema and exudate. ~The external ears are intact. The ear canals are patent and without drainage. The tympanic membranes are intact. Neck: the neck is supple with full range of motion and non-tender. There are no carotid bruits. ~There is no neck vein distension. Respiratory: Chest is non-tender. ~Lungs are clear to auscultation and breath sounds are symmetrical and equal. Cardiovascular: Heart is regular rate and rhythm. ~There is no murmur or rub auscultated. ~~There is no peripheral edema and pulses are symmetrical and equal. Abdomen: The abdomen is soft and non-tender. ~There are normal bowel sounds heard in all four quadrants and there is no organomegaly palpated. Musculoskeletal: There is no back tenderness noted. ~Extremities are non-tender with full range of motion. ~There is good capillary refill. ~There is no peripheral edema or calf tenderness elicited. tenderness to palpation on left heel Neurological: Patient is alert and oriented to person, place and time. ~The patient has symmetrical motor strength in all four extremities. ~Cranial nerves are grossly intact. Deep tendon reflexes are symmetrical and equal in all four extremities. Psychiatric: The patient has an appropriate affect and does not exhibit any anxiety or depression. Triage Information Reviewed: Yes Vital Signs On Initial Exam: Initial Vitals BP 145/82 06/04/17 11:04 Vital Signs Reviewed: Yes Completion Of Physical Exam Limited Due To: Level 5 Diagnostics - Vital Signs Vital Signs Temp Pulse Resp BP Pulse Ox 06/04/17 13:00 134/98 06/04/17 12:30 19 143/113 06/04/17 12:00 17 129/85 06/04/17 11:30 150 17 137/79 79 06/04/17 11:11 80 15 154/76 98 06/04/17 11:09 98.1 F 79 16 145/82 100 06/04/17 11:05 80 14 100 06/04/17 11:04 145/82 - Laboratory Lab Results: Lab Results 06/04/17 06/04/17 Range/Units 11:53 11:53 WBC 11.5 H (3.5-10.8) 10^3/ul RBC 4.38 (4.0-5.4) 10^6/ul Hgb 14.4 (14.0-18.0) g/dl Hct 43 (42-52) % MCV 97 H (80-94) fL MCH 33 H (27-31) pg MCHC 34 (31-36) g/dl RDW 13 (10.5-15) % Plt Count 375 (150-450) 10^3/ul MPV 11 H (7.4-10.4) um3 Neut % (Auto) 71.3 (38-83) % Lymph % (Auto) 17.2 L (25-47) % Otero % (Auto) 11.0 H (1-9) % Eos % (Auto) 0.2 (0-6) % Baso % (Auto) 0.3 (0-2) % Absolute Neuts (auto) 8.2 H (1.5-7.7) 10^3/ul Absolute Lymphs (auto) 2.0 (1.0-4.8) 10^3/ul Absolute Monos (auto) 1.3 H (0-0.8) 10^3/ul Absolute Eos (auto) 0 (0-0.6) 10^3/ul Absolute Basos (auto) 0 (0-0.2) 10^3/ul Absolute Nucleated RBC 0 10^3/ul Nucleated RBC % 0 Sodium 132 L (133-145) mmol/L Potassium 3.5 (3.5-5.0) mmol/L Chloride 97 L (101-111) mmol/L Carbon Dioxide 21 L (22-32) mmol/L Anion Gap 14 H (2-11) mmol/L BUN 7 (6-24) mg/dL Creatinine 0.93 (0.67-1.17) mg/dL Est GFR ( Amer) 107.7 (>60) Est GFR (Non-Af Amer) 83.7 (>60) BUN/Creatinine Ratio 7.5 L (8-20) Glucose 111 H (70-100) mg/dL Calcium 9.8 (8.6-10.3) mg/dL Total Bilirubin 1.00 (0.2-1.0) mg/dL AST 33 (13-39) U/L ALT 19 (7-52) U/L Alkaline Phosphatase 61 (34-104) U/L Troponin I 0.06 H* (<0.04) ng/mL Total Protein 8.3 (6.4-8.9) g/dL Albumin 4.8 (3.2-5.2) g/dL Globulin 3.5 (2-4) g/dL Albumin/Globulin Ratio 1.4 (1-3) Salicylates < 2.50 (<30) mg/dL Acetaminophen < 15 mcg/mL Result Diagrams: 06/04/17 11:53 06/04/17 11:53 Lab Statement: Any lab studies that have been ordered have been reviewed, and results considered in the medical decision making process. - Radiology Foot Xray Radiology Interpretation Completed By: Radiologist - NO EVIDENCE FOR FRACTURE, IF THE PATIENT'S SYMPTOMS PERSIST RECOMMEND FOLLOW-UP IMAGING. ED physician has reviewed this radiology report and agrees. - EKG 11:44 Cardiac Rate: NL EKG Rhythm: Sinus Rhythm - NSR at 85 BPM EKG Interpretation: flipped T waves in 2,3 and AVF. Consider ischemia. Altered Mental Statu Course/Dx - Course Course Of Treatment: After a short while, Mr. Murrell began to be more cooperative and had a long list of C/Os. He has been in altercations with the guards a couple of times in the last week and complains of multiple pains including chest pain. He is vague about the chest pain but he has flopped t- waves in the inferior leads which are new and an indeterminante trop. He had a pretty clean cath about a year ago. The hospitalists are evaluating him at this time. - Diagnoses Discharge Diagnoses: Chest pain - Provider Notifications Discussed Care Of Patient With: Usama Walton Time Discussed With Above Provider: 13:03 Instructed by Provider To: Other - Discussed patient care with Dr. Walton, he has agreed to admit the patient for further care Discharge - Discharge Plan Condition: Stable Disposition: ADMITTED TO [facility] documentation as recorded by the Leon potter Gabriel accurately reflects the service I personally performed and the decisions made by me, Alexander Olvera MD.
[2017-06-04] MEDS ORDERED: Aspirin TAB* 325 MG PO ONE (15:07)
[2017-06-04] MEDS: NS 0.9% 1000 ML* 1,000 ML IV SCH (15:50)
[2017-06-04] MEDS: Acetaminophen TAB* 325 MG PO PRN (15:50)
[2017-06-04] MEDS: Ketorolac TAB * 10 MG TAB PO PRN (15:51)
--- NOTE | 2017-06-04 16:18 | ECHO ---
Patient: MINISTREIO TRINIDAD [facility] Rec#: [id number] : 1960 Date: 06/04/2017 Age: 57y Height: 187.96 cm / 74.0 in Weight: 76.66 kg / 169.0 lbs Sex: M BSA: 2.02 Room#: [facility] Admit Date#: 06/04/2017 Type: Inpatient Referring: Claudia Clark Reading: Apollo Murillo DO Cardiac Nurse Specialist[facility] Indication: Chest pain, elevated troponin, BP: 150/86 HR: 78 Rhythm: NSR Findings History: VT, COPD, GERD, smoker, hepatitis C. Technical Comments: The study quality is fair. The study is technically limited due to poor acoustic windows. Completed at 1545. Left Ventricle: The left ventricular chamber size is normal. There is no left ventricular hypertrophy. Global left ventricular wall motion and contractility are within normal limits. There is normal left ventricular systolic function. The estimated ejection fraction is 55-60%. There is no consistent Doppler evidence of clinically significant diastolic dysfunction. Left Atrium: The left atrial chamber size is normal. Right Ventricle: The right ventricular chamber size and systolic function are within normal limits. Right Atrium: The right atrial cavity size is normal. Aortic Valve: The aortic valve is trileaflet. The aortic valve leaflets are mildly thickened. There is aortic annular calcification.that is mild There is no evidence of aortic regurgitation. There is no evidence of aortic stenosis. Mitral Valve: Mild mitral annular calcification present. The mitral valve leaflets are mildly thickened. There is a trace of mitral regurgitation. There is no evidence of mitral stenosis. Tricuspid Valve: The tricuspid valve leaflets are normal. There is trace tricuspid regurgitation. No pulmonary hypertension is noted. There is no tricuspid stenosis. Pulmonic Valve: The pulmonic valve appears normal. There is a trace pulmonic regurgitation. There is no pulmonic stenosis. Pericardium: There is no significant pericardial effusion. Aorta: There is no dilatation of the ascending aorta. There is no dilatation of the aortic arch. The aortic root is normal in size. Pulmonary Artery: The main pulmonary artery appears normal. Venous: The inferior vena cava appears normal in size. There is a greater than 50% respiratory change in the inferior vena cava dimension. Conclusions The left ventricular chamber size is normal. There is no left ventricular hypertrophy. Global left ventricular wall motion and contractility are within normal limits. There is normal left ventricular systolic function. The estimated ejection fraction is 55-60%. The left atrial chamber size is normal. The right ventricular chamber size and systolic function are within normal limits. No significant valvular abnormalities noted Normal estimate PA systolic pressure Compared to prior study from 11/2013, no significant changes noted. Measurements Name Value Normal Range RVIDd (AP) 2D 2.7 cm (0.9 - 2.6) RVDdMajor (2D) 3.5 cm (2.2 - 4.4) RAd ISD 4CH 4.2 cm (3.4 - 4.9) RA (A4C)W 3.9 cm (2.9 - 4.6) IVSd (2D) 0.9 cm (0.6 - 1) LVPWd (2D) 0.7 cm (0.6 - 1) LVIDd (2D) 4.9 cm (3.6 - 5.4) LVIDs (2D) 3.4 cm - LV FS (2D) 32 % (25 - 45) Aortic Annulus 2.1 cm (1.4 - 2.6) Ao root diameter (2D) 3.3 cm (2.1 - 3.5) Ascending Ao 3.2 cm (2.1 - 3.4) Aortic arch 2.4 cm (1.8 - 3.4) LA dimension (AP) 2D 3.1 cm (2.3 - 3.8) LAd ISD 4CH 3.7 cm (2.9 - 5.3) LA ISD 4CH W 3.2 cm (2.5 - 4.5) Name Value Normal Range LA ESV SP 4CH (A/L) 69 ml - LA ESV SP 4CH (MOD) 46 ml - Name Value Normal Range MV E-wave Vmax 0.66 m/sec - MV deceleration time 308.3 msec - MV A-wave Vmax 0.59 m/sec - MV E:A ratio 1.12 ratio - LV septal e' Vmax 0.08 m/sec - LV lateral e' Vmax 0.14 m/sec - LV E:e' septal ratio 8.25 ratio - LV E:e' lateral ratio 4.71 ratio - Name Value Normal Range AV Vmax 1.34 m/sec - AV VTI 23.59 cm - AV peak gradient 7.19 mmHg - AV mean gradient 4.71 mmHg - LVOT Vmax 1.12 m/sec - LVOT VTI 18.76 cm - LVOT peak gradient 4.99 mmHg - LVOT mean gradient 2.22 mmHg - JOHN Vmax 1.19 m/sec - Name Value Normal Range TR Vmax 1.9 m/sec - TR peak gradient 14 mmHg - RAP 3 mmHg - RVSP 17 mmHg - IVC diameter 1.4 cm - Name Value Normal Range PV Vmax 1.32 m/sec - PV peak gradient 7.05 mmHg -
[2017-06-04] MEDS: Metoprolol Tartrate TAB* 50 mg PO SCH (18:17)
[2017-06-04] MEDS ORDERED: CMCS: Melatonin (NF) 3 MG TAB PO PRN (19:07)
[2017-06-04] MEDS ORDERED: Potassium Chlor TAB* 20 MEQ TAB.ER PO ONE (19:08)
[2017-06-04] MEDS ORDERED: KCL 20 MEQ/100 ML IVPREMIX* 20 MEQ/100 ML BAG IV ONE (19:08)
[2017-06-04 19:41] LABS: TSH (Thyroid Stimulating Horm) 1.32 mcIU/mL (0.34-5.60)
[2017-06-04] MEDS: cloNIDine TAB* 0.1 MG PO SCH (20:57)
[2017-06-04] MEDS ORDERED: Metoprolol Tartrate TAB* 50 mg PO SCH (21:00)
--- NOTE | 2017-06-04 21:27 | PN ---
Hospitalist Progress Note Called by Nursing Staff reports 13 run v-tach, and remains tachycardic with heart rate up to the 130's. Nursing to give patient home dose of metoprolol 50mg now. Magnesium level added to labwork. 1829: evaluated patient at the bedside patient remains tachycardic rate 120's to 200. Rhythm on the monitor appears to be A-Fib, patient with no documented history of A-FIB; STAT EKG obtained. Patient denies shortness of breath or palpitations. Cardiology consulted will see patient in the AM. Will replace potassium. Suspect rebound tachycardia from abrupt discontinuation of metoprolol. Feel that the patient will self convert. 2099 Patient noted to be in sinus rhythm; will repeat EKG; will hold on anticoagulation at this time.
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
[2017-06-05] MEDS: NS 0.9% 1000 ML* 1,000 ML IV SCH (02:08)
[2017-06-05 05:59] LABS: Hematocrit 37 % (42-52); Hemoglobin 12.6 g/dl (14.0-18.0); Mean Corpuscular HGB Conc 35 g/dl (31-36); Mean Corpuscular Hemoglobin 34 pg (27-31); Mean Corpuscular Volume 97 fL (80-94); Mean Platelet Volume 11 um3 (7.4-10.4); Red Blood Count 3.75 10^6/ul (4.0-5.4); Red Cell Distribution Width 13 % (10.5-15); White Blood Count 10.3 10^3/ul (3.5-10.8)
[2017-06-05 06:20] LABS: BUN/Creatinine Ratio 13.9 (8-20); Blood Urea Nitrogen 11 mg/dL (6-24); CO2 Carbon Dioxide 20 mmol/L (22-32); Calcium 9.3 mg/dL (8.6-10.3); Chloride 105 mmol/L (101-111); EGFR Non-African American 101.1 (>60); Glucose 96 mg/dL (70-100); Sodium 133 mmol/L (133-145)
[2017-06-05 06:38] LABS: Comments Flag Yes
[2017-06-05 06:39] LABS: Add Diff/Slide Review? Slide Review Added
[2017-06-05 06:48] LABS: Anion Gap 8 mmol/L (2-11)
[2017-06-05 07:16] LABS: Platelet Morphology Large
[2017-06-05] MEDS: Omeprazole CAP* 20 MG PO SCH (08:07)
[2017-06-05] MEDS: Multivitamins/Minerals TAB PO SCH (08:07)
[2017-06-05] MEDS: Metoprolol Tartrate TAB* 50 mg PO SCH (08:08)
[2017-06-05] MEDS: cloNIDine TAB* 0.1 MG PO SCH ×2 (08:08→21:17)
[2017-06-05] MEDS: Aspirin Low Dose CHEW TAB* 81 MG PO SCH (08:08)
[2017-06-05] MEDS: Thiamine TAB* 100 MG TAB PO SCH (08:08)
[2017-06-05] MEDS: Folic Acid TAB* 1 MG PO SCH (08:08)
[2017-06-05] MEDS: Acetaminophen TAB* 325 MG PO PRN (08:08)
[2017-06-05] MEDS: Ketorolac TAB * 10 MG TAB PO PRN ×2 (08:28→16:17)
[2017-06-05] MEDS ORDERED: Sertraline* 100 MG TAB PO SCH (09:00)
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
--- NOTE | 2017-06-05 14:41 | CONS ---
CARDIOLOGY CONSULTATION REPORT: ADDENDUM: I did discuss the risk of cardioembolic events related to paroxysmal AFib; given his CHADS-VASc2 score of 0 and his difficult psychosocial situation and risks for injury and bleeding, I suggested aspirin 81 mg a day for now. In the past, we had recommended a referral for EP evaluation for his VT, which he declined. Given that his VT seems to be well controlled on beta-blockers, I would continue that. If he is unable to tolerate beta-blockers, then consider gradually tapering the beta xena and switching him to a calcium channel xena. Further recommendations will depend on his clinical course. Consider followup with Dr. Bliss as an outpatient. [id number]/[facility] #: [id number] SAUL
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
[2017-06-05] MEDS ORDERED: Metoprolol Tartrate IV* 1 MG/ML 5 ML VIAL IV ONE (16:55)
[2017-06-05] MEDS ORDERED: LORazepam INJ* 2 MG/ML 1 ML VIAL IV PUSH ONE (16:58)
[2017-06-05] MEDS ORDERED: Metoprolol Tartrate IV* 1 MG/ML 5 ML VIAL ONE (17:02)
[2017-06-05] MEDS ORDERED: LORazepam INJ* 2 MG/ML 1 ML VIAL ONE (17:02)
[2017-06-05] MEDS ORDERED: Diltiazem IV* 5 MG/ML 5 ML VIAL (for loading dose/IV Push) (25 MG) IV SLOW PU ONE (17:23)
[2017-06-05] MEDS ORDERED: Diltiazem DRIP* 100 MG/100 ML ADDV.BAG IVPB ONE (17:39)
[2017-06-05] MEDS ORDERED: Diltiazem IV* 5 MG/ML 5 ML VIAL (for loading dose/IV Push) (25 MG) ONE (17:40)
[2017-06-05] MEDS ORDERED: Diltiazem DRIP* 100 MG/100 ML ADDV.BAG IVPB SCH (18:00)
[2017-06-05] MEDS: Diltiazem TAB* 30 MG PO SCH (19:36)
[2017-06-05] MEDS ORDERED: Metoprolol Tartrate TAB* 50 mg PO SCH (21:00)
[2017-06-05] MEDS ORDERED: LORazepam INJ* 2 MG/ML 1 ML VIAL IV PUSH PRN (23:00)
[2017-06-06] MEDS: Diltiazem TAB* 30 MG PO SCH ×3 (00:42→11:49)
[2017-06-06 05:58] LABS: Hematocrit 38 % (42-52); Hemoglobin 12.8 g/dl (14.0-18.0); Mean Corpuscular HGB Conc 34 g/dl (31-36); Mean Corpuscular Hemoglobin 33 pg (27-31); Mean Corpuscular Volume 97 fL (80-94); Mean Platelet Volume 11 um3 (7.4-10.4); Red Blood Count 3.86 10^6/ul (4.0-5.4); Red Cell Distribution Width 13 % (10.5-15); White Blood Count 10.3 10^3/ul (3.5-10.8)
[2017-06-06 06:10] LABS: Comments Flag Yes
[2017-06-06 06:21] LABS: BUN/Creatinine Ratio 7.2 (8-20); Calcium 9.1 mg/dL (8.6-10.3); EGFR African American 122.8 (>60); EGFR Non-African American 95.5 (>60); Magnesium 2.1 mg/dL (1.9-2.7); Potassium 3.6 mmol/L (3.5-5.0)
[2017-06-06] MEDS: Omeprazole CAP* 20 MG PO SCH (07:38)
[2017-06-06] MEDS: cloNIDine TAB* 0.1 MG PO SCH (07:38)
[2017-06-06] MEDS: Folic Acid TAB* 1 MG PO SCH (07:38)
[2017-06-06] MEDS: Ketorolac TAB * 10 MG TAB PO PRN (07:38)
[2017-06-06] MEDS: Multivitamins/Minerals TAB PO SCH (07:38)
[2017-06-06] MEDS: Thiamine TAB* 100 MG TAB PO SCH (07:38)
[2017-06-06] MEDS: Aspirin Low Dose CHEW TAB* 81 MG PO SCH (07:38)
[2017-06-06] MEDS ORDERED: Potassium Chlor TAB* 20 MEQ TAB.ER PO SCH (09:00)
[2017-06-06] MEDS ORDERED: Metoprolol Succinate XL TAB* 50 MG PO SCH (09:00)
[2017-06-06] MEDS ORDERED: Sertraline* 100 MG TAB PO SCH (09:00)
[2017-06-06] MEDS ORDERED: Pneumococcal *Vac Polyvalent 0.5 ML VIAL IM ONE (12:00)
[2017-06-06] MEDS ORDERED: Influenza VAC *QUAD* 2017-18* 0.5 ML SYRINGE IM ONE (12:00)
[2017-06-06 12:09] VITALS: BP 120/67
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
[2017-06-06] MEDS ORDERED: Diltiazem CD CAP* 120 MG PO SCH (18:00)
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
== END 2017-06-06 17:35 | disposition home or self-care (01) | DRG 201 ==
LOC: ED 10:59 → EEVIPCON 13:05 → MEDTELE 13:05 → OBSVTOIN 06-06 10:05
PROVIDERS: ADMIT Internal Medicine; ATTEND Internal Medicine
DX: I48.91 Unspecified atrial fibrillation (principal); F33.1 Major depressive disorder, recurrent, moderate; I47.2 Ventricular tachycardia; I42.8 Other cardiomyopathies; F60.2 Antisocial personality disorder; I10 Essential (primary) hypertension; F10.10 Alcohol abuse, uncomplicated; R07.9 Chest pain, unspecified; M25.572 Pain in left ankle and joints of left foot; F19.21 Other psychoactive substance dependence, in remission; F60.0 Paranoid personality disorder; Z82.49 Family history of ischemic heart disease and other diseases of the circulatory system; Z91.14 Patient's other noncompliance with medication regimen; Z87.891 Personal history of nicotine dependence; Z79.899 Other long term (current) drug therapy
CPT/HCPCS: 36415; 80048; 80053; 80329; 83735; 84443; 84484; 85025; 90686; 90732; 93005; 93306; A9270-GY; G0378; G0480; J2060; J3480; J3490

== ENCOUNTER 2017-06-10 10:37 | Emergency (ER) | payer OTHER ==
[2017-06-10] MEDS ORDERED: Aspirin Low Dose CHEW TAB* 81 MG PO ONE (11:26)
--- NOTE | 2017-06-10 12:14 | RAD ---
HISTORY: Chest pain COMPARISONS: July 19, 2016 VIEWS: 1: frontal portable view of the chest at 11:40 AM FINDINGS: LINES AND TUBES: None. CARDIOMEDIASTINAL SILHOUETTE: The cardiomediastinal silhouette is normal for portable technique. PLEURA: The costophrenic angles are sharp. No pleural abnormalities are noted. LUNG PARENCHYMA: The lungs are clear. ABDOMEN: The upper abdomen is clear. There is no subphrenic gas. BONES AND SOFT TISSUES: No bone or soft tissue abnormalities are noted. IMPRESSION: NO ACTIVE CARDIOPULMONARY DISEASE.
[2017-06-10 12:26] LABS: Hematocrit 40 % (42-52); Hemoglobin 13.7 g/dl (14.0-18.0); Mean Corpuscular HGB Conc 35 g/dl (31-36); Mean Corpuscular Hemoglobin 33 pg (27-31); Mean Corpuscular Volume 97 fL (80-94); Red Cell Distribution Width 13 % (10.5-15); White Blood Count 5.3 10^3/ul (3.5-10.8)
[2017-06-10 12:41] LABS: Albumin 4.2 g/dL (3.2-5.2); BUN/Creatinine Ratio 8.5 (8-20); Calcium 9.4 mg/dL (8.6-10.3); EGFR African American 147.1 (>60); EGFR Non-African American 114.4 (>60); Globulin 3.3 g/dL (2-4); Potassium 4.1 mmol/L (3.5-5.0); Total Bilirubin 0.5 mg/dL (0.2-1.0); Total Protein 7.5 g/dL (6.4-8.9)
[2017-06-10 12:44] LABS: Comments Flag Yes; Mean Platelet Volume 10 um3 (7.4-10.4); Troponin I 0.01 ng/mL (<0.04)
[2017-06-10 13:03] LABS: T4 8.73 mcg/mL (6.09-12.23)
[2017-06-10 13:07] LABS: TSH (Thyroid Stimulating Horm) 0.87 mcIU/mL (0.34-5.60)
[2017-06-10] MEDS ORDERED: Acetaminophen TAB* 325 MG PO ONE (13:38)
[2017-06-10 13:46] LABS: Urine Bilirubin Negative (Negative); Urine Glucose Negative (Negative); Urine Nitrite Negative (Negative)
[2017-06-10] MEDS ORDERED: Lidocaine 2% VISCOUS* 15 ML UDC PO ONE (15:18)
[2017-06-10] MEDS ORDERED: Al Hydrox/Mg Hydrox/Simet LIQ* 30 ML UDC PO ONE (15:18)
[2017-06-10 15:24] VITALS: BP 114/82
[2017-06-10] MEDS ORDERED: Metoprolol Succinate XL TAB* 50 MG PO ONE (15:47)
[2017-06-10] MEDS ORDERED: Diltiazem TAB* 60 MG PO ONE (15:48)
[2017-06-10] MEDS ORDERED: Diltiazem TAB* 60 MG ONE (15:51)
[2017-06-10] MEDS ORDERED: Metoprolol Tartrate TAB* 50 mg ONE (15:51)
--- NOTE | 2017-06-12 18:31 | ED ---
Too Zuleta Angela, scribed for Odilon Olivarez MD on 06/10/17 at 1115 . HPI Chest Pain - HPI Summary HPI Summary: This pt is a 57 y/o male presenting to [facility] via EMS from [facility] c /o left sided chest pain since last night. Pt reports that his chest pain radiates to his jaw. He currently rates his pain 8-9 out of 10 in severity. Pt additionally c/o weakness and episodes of dizziness. He denies SOB today. Per staff members, pt has not been eating well or taken his medications for the past 4 days. Pt has also not been drinking water very much. PMHx includes COPD, FL, GERD. - History of Current Complaint Chief Complaint: EDChestPainROMI Time Seen by Provider: 06/10/17 11:13 Hx Obtained From: Patient Onset/Duration: Started Days Ago - 1, Still Present Timing: Lasting Days - 1 Current Severity: Severe Pain Intensity: 8 Pain Scale Used: 0-10 Numeric Chest Pain Location: Left Anterior Chest Pain Radiates: Yes Chest Pain Radiates To:: Jaw Associated Signs and Symptoms: Positive: Weakness, Dizziness, Other: - POS: decreased PO intake, non-compliant with medications.. Negative: Shortness of Breath - Additional Pertinent History Primary Care Physician: [id number] - Allergy/Home Medications Allergies/Adverse Reactions: Allergies Allergy/AdvReac Type Severity Reaction Status Date / Time No Known Allergies Allergy Verified 01/25/15 23:21 PMH/Surg Hx/FS Hx/Imm Hx Endocrine/Hematology History: Denies: Hx Anticoagulant Therapy, Hx Diabetes, Hx Thyroid Disease Cardiovascular History: Reports: Hx Angina, Hx Myocardial Infarction - per pt, Other Cardiovascular Problems/Disorders - PT. STATES IRREGULAR HEARTBEAT Denies: Hx Congestive Heart Failure, Hx Coronary Artery Disease, Hx Hypercholesterolemia, Hx Hypertension, Hx Pacemaker/ICD Respiratory History: Reports: Hx Asthma, Hx Chronic Bronchitis, Hx Chronic Obstructive Pulmonary Disease (COPD), Hx Sleep Apnea, Other Respiratory Problems /Disorders - COPD GI History: Reports: Hx Gastroesophageal Reflux Disease Denies: Hx Ulcer, Other GI Disorders History: Denies: Hx Renal Disease, Other Problems/Disorders Musculoskeletal History: Reports: Hx Orthopedic Injury - multiple broken bones Sensory History: Reports: Hx Contacts or Glasses - reading Denies: Hx Hearing Aid Opthamlomology History: Reports: Hx Contacts or Glasses - reading Neurological History: Reports: 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 Facial bone reconstruction. Right ankle. Bilateral Cheek bone repair. Nose repaired Hx Anesthesia Reactions: No - Immunization History Date of Tetanus Vaccine: Unknown Date of Influenza Vaccine: UNK Infectious Disease History: No Infectious Disease History: Reports: Hx Hepatitis Denies: Hx Clostridium Difficile, Hx Human Immunodeficiency Virus (HIV), Hx Shingles, Hx Tuberculosis, Traveled Outside the [place] in Last 30 Days - Family History Known Family History: Positive: Cardiac Disease, Other - Alcohol abuse - Social History Alcohol Use: None Alcohol Amount: drank some today Hx Substance Use: Yes Substance Use Type: Reports: None Substance Use Comment - Amount & Last Used: Unknown on all substances. PT poor with drug-use information. Hx Tobacco Use: Yes Smoking Status (MU): Former Smoker Type: Cigarettes Length of Time of Smoking/Using Tobacco: 2+PPd Review of Systems Constitutional: Other - decreased PO intake, non-compliant with medications Negative: Fever, Chills Positive: Chest Pain Negative: Shortness Of Breath Neurological: Other - dizziness Positive: Weakness All Other Systems Reviewed And Are Negative: Yes Physical Exam - Summary Physical Exam Summary: VITAL SIGNS: Reviewed. GENERAL: Patient is a well-developed and nourished male who is lying comfortable in the stretcher. Patient is not in any acute respiratory distress. HEAD AND FACE: No signs of trauma. No ecchymosis, hematomas or skull depressions. No sinus tenderness. EYES: PERRLA, EOMI x 2, No injected conjunctiva, no nystagmus. EARS: Hearing grossly intact. Ear canals and tympanic membranes are within normal limits. MOUTH: Oropharynx within normal limits. NECK: Supple, trachea is midline, no adenopathy, no JVD, no carotid bruit, no c- spine tenderness, neck with full ROM. CHEST: Symmetric, no tenderness at palpation LUNGS: Clear to auscultation bilaterally. No wheezing or crackles. CVS: Regular rate and rhythm, S1 and S2 present, no murmurs or gallops appreciated. ABDOMEN: Soft, non-tender. No signs of distention. No rebound no guarding, and no masses palpated. Bowel sounds are normal. EXTREMITIES: FROM in all major joints, no edema, no cyanosis or clubbing. NEURO: Alert and oriented x 3. No acute neurological deficits. Speech is normal and follows commands. SKIN: Dry and warm Triage Information Reviewed: Yes Vital Signs On Initial Exam: Initial Vitals Temp Pulse Resp BP Pulse Ox 99 F 88 20 129/83 96 06/10/17 11:00 06/10/17 11:00 06/10/17 11:00 06/10/17 11:00 06/10/17 11:00 Vital Signs Reviewed: Yes Diagnostics - Vital Signs Vital Signs Temp Pulse Resp BP Pulse Ox 06/10/17 11:00 99 F 88 20 129/83 96 - Laboratory Lab Results: Lab Results 06/10/17 06/10/17 06/10/17 Range/Units 12:00 12:00 12:00 WBC 5.3 (3.5-10.8) 10^3/ul RBC 4.10 (4.0-5.4) 10^6/ul Hgb 13.7 L (14.0-18.0) g/dl Hct 40 L (42-52) % MCV 97 H (80-94) fL MCH 33 H (27-31) pg MCHC 35 (31-36) g/dl RDW 13 (10.5-15) % Plt Count 399 (150-450) 10^3/ul MPV 10 (7.4-10.4) um3 Neut % (Auto) 45.4 (38-83) % Lymph % (Auto) 37.1 (25-47) % Bucks % (Auto) 11.7 H (1-9) % Eos % (Auto) 4.8 (0-6) % Baso % (Auto) 1.0 (0-2) % Absolute Neuts (auto) 2.4 (1.5-7.7) 10^3/ul Absolute Lymphs (auto) 2.0 (1.0-4.8) 10^3/ul Absolute Monos (auto) 0.6 (0-0.8) 10^3/ul Absolute Eos (auto) 0.3 (0-0.6) 10^3/ul Absolute Basos (auto) 0.1 (0-0.2) 10^3/ul Absolute Nucleated RBC 0 10^3/ul Nucleated RBC % 0.1 Sodium 136 (133-145) mmol/L Potassium 4.1 (3.5-5.0) mmol/L Chloride 104 (101-111) mmol/L Carbon Dioxide 26 (22-32) mmol/L Anion Gap 6 (2-11) mmol/L BUN 6 (6-24) mg/dL Creatinine 0.71 (0.67-1.17) mg/dL Est GFR ( Amer) 147.1 (>60) Est GFR (Non-Af Amer) 114.4 (>60) BUN/Creatinine Ratio 8.5 (8-20) Glucose 114 H (70-100) mg/dL Calcium 9.4 (8.6-10.3) mg/dL Total Bilirubin 0.50 (0.2-1.0) mg/dL AST 19 (13-39) U/L ALT 14 (7-52) U/L Alkaline Phosphatase 57 (34-104) U/L Total Creatine Kinase 84 (10-223) U/L CK-MB (CK-2) 0.9 (0.6-6.3) ng/mL Troponin I 0.01 (<0.04) ng/mL B-Natriuretic Peptide 13 ( - 100) pg/mL Total Protein 7.5 (6.4-8.9) g/dL Albumin 4.2 (3.2-5.2) g/dL Globulin 3.3 (2-4) g/dL Albumin/Globulin Ratio 1.3 (1-3) TSH 0.87 (0.34-5.60) mcIU/mL Thyroxine (T4) 8.73 (6.09-12.23) mcg/mL Urine Color Urine Appearance Urine pH (5-9) Ur Specific [place] (1.010-1.030) Urine Protein (Negative) Urine Ketones (Negative) Urine Blood (Negative) Urine Nitrate (Negative) Urine Bilirubin (Negative) Urine Urobilinogen (Negative) Ur Leukocyte Esterase (Negative) Urine Glucose (Negative) Urine Ascorbic Acid (Negative) 06/10/17 06/10/17 Range/Units 13:31 14:28 WBC (3.5-10.8) 10^3/ul RBC (4.0-5.4) 10^6/ul Hgb (14.0-18.0) g/dl Hct (42-52) % MCV (80-94) fL MCH (27-31) pg MCHC (31-36) g/dl RDW (10.5-15) % Plt Count (150-450) 10^3/ul MPV (7.4-10.4) um3 Neut % (Auto) (38-83) % Lymph % (Auto) (25-47) % Bucks % (Auto) (1-9) % Eos % (Auto) (0-6) % Baso % (Auto) (0-2) % Absolute Neuts (auto) (1.5-7.7) 10^3/ul Absolute Lymphs (auto) (1.0-4.8) 10^3/ul Absolute Monos (auto) (0-0.8) 10^3/ul Absolute Eos (auto) (0-0.6) 10^3/ul Absolute Basos (auto) (0-0.2) 10^3/ul Absolute Nucleated RBC 10^3/ul Nucleated RBC % Sodium (133-145) mmol/L Potassium (3.5-5.0) mmol/L Chloride (101-111) mmol/L Carbon Dioxide (22-32) mmol/L Anion Gap (2-11) mmol/L BUN (6-24) mg/dL Creatinine (0.67-1.17) mg/dL Est GFR ( Amer) (>60) Est GFR (Non-Af Amer) (>60) BUN/Creatinine Ratio (8-20) Glucose (70-100) mg/dL Calcium (8.6-10.3) mg/dL Total Bilirubin (0.2-1.0) mg/dL AST (13-39) U/L ALT (7-52) U/L Alkaline Phosphatase (34-104) U/L Total Creatine Kinase (10-223) U/L CK-MB (CK-2) (0.6-6.3) ng/mL Troponin I 0.03 (<0.04) ng/mL B-Natriuretic Peptide ( - 100) pg/mL Total Protein (6.4-8.9) g/dL Albumin (3.2-5.2) g/dL Globulin (2-4) g/dL Albumin/Globulin Ratio (1-3) TSH (0.34-5.60) mcIU/mL Thyroxine (T4) (6.09-12.23) mcg/mL Urine Color [place] Urine Appearance Cloudy Urine pH 6.0 (5-9) Ur Specific [place] 1.019 (1.010-1.030) Urine Protein Negative (Negative) Urine Ketones Trace H (Negative) Urine Blood Negative (Negative) Urine Nitrate Negative (Negative) Urine Bilirubin Negative (Negative) Urine Urobilinogen Positive H (Negative) Ur Leukocyte Esterase Negative (Negative) Urine Glucose Negative (Negative) Urine Ascorbic Acid * H (Negative) Result Diagrams: 06/10/17 12:00 06/10/17 12:00 Lab Statement: Any lab studies that have been ordered have been reviewed, and results considered in the medical decision making process. - Radiology Chest XR Xray Interpretation: No Acute Changes - IMPRESSION: No active cardiopulmonary disease. ED physician has reviewed this radiology report and agrees. Radiology Interpretation Completed By: Radiologist - EKG 1151 Cardiac Rate: NL EKG Rhythm: Sinus Rhythm - at 67 bpm EKG Interpretation: No ST elevation Chest Pain Course/Dx - Course Assessment/Plan: This pt is a 57 y/o male presenting to [facility] via EMS from [facility] c/o left sided chest pain since last night. Pt reports that his chest pain radiates to his jaw. He currently rates his pain 8-9 out of 10 in severity. Pt additionally c/o weakness and episodes of dizziness. He denies SOB today. Per staff members, pt has not been eating well or taken his medications for the past 4 days. Pt has also not been drinking water very much. PMHx includes COPD, FL, GERD. Test results without any significant abnormalities except for chronic slight anemia, troponin 1 is 0.00 and troponin 2 is 0.03. Urinalysis is negative for UTI. Chest XR shows no active cardiopulmonary disease. Since the troponin is negative. I discussed the test results and findings with the pt, he does not want to go back because he thinks people are trying to poison him in senior care. I explained to the pt that he needs to take medications as indicated by Dr. Walton, however he is not sure he will take them. Otherwise, the pt will be discharged home with follow up from PCP. - Chest Pain Differential Diagnosis/HQI/PQRI: Acute FL, ACS, Angina, CHF, Chest Wall, GI Disease, Lower Respiratory Infection - Diagnoses Provider Diagnoses: Chest pain Discharge - Discharge Plan Condition: Stable Disposition: HOME Patient Education Materials: Chest Pain (ED) Referrals: No Primary Care Phys,NOPCP [Primary Care Provider] - [facility] [place] [facility]IAN REFERRAL [Outside] Additional Instructions: Please follow up with your primary care provider. RETURN TO THE ED FOR ANY WORSENING OR NEW SYMPTOMS. The documentation as recorded by the Too potter Angela accurately reflects the service I personally performed and the decisions made by , Odilon Olivarez MD.
== END 2017-06-10 15:29 | disposition home or self-care (01) ==
LOC: ED 10:37
DX: R07.9 Chest pain, unspecified (principal); I25.2 Old myocardial infarction; Z91.19 Patient's noncompliance with other medical treatment and regimen; J44.9 Chronic obstructive pulmonary disease, unspecified; F43.10 Post-traumatic stress disorder, unspecified; F32.9 Major depressive disorder, single episode, unspecified; F41.9 Anxiety disorder, unspecified; K21.9 Gastro-esophageal reflux disease without esophagitis
CPT/HCPCS: 36415; 71010; 80053; 81003; 82550; 82553; 83880; 84436; 84443; 84484; 85025; 93005; 99282; A9270-GY

== ENCOUNTER → 2019-11-02 | Emergency (ER) | payer MEDICAID ==
[~2019-11-02] MED LIST: Haloperidol 5 mg/ml SDV IV/IM 5 MG/ML AMP IM ONE; Haloperidol 5 mg/ml SDV IV/IM 5 MG/ML AMP ONE; LORazepam 2 mg VIAL 1 ml IM ONE; LORazepam 2 mg VIAL 1 ml ONE; diPHENhydraMINE IV 50 MG/ML 1 ml VIAL (BENADRYL) IM ONE; diPHENhydraMINE IV 50 MG/ML 1 ml VIAL (BENADRYL) ONE; diPHENhydraMINE IV 50 MG/ML 1 ml VIAL (BENADRYL) SLOW PUSH ONE
[2019-11-02 23:00] VITALS: BP 110/59
[2019-11-04 00:25] LABS: ABS Basophils 0.1 10^3/ul (0-0.2); ABS Lymphocytes 1.8 10^3/ul (1.0-4.8); ABS Monocytes 0.9 10^3/ul (0-0.8); Hematocrit 40 % (42-52); Hemoglobin 12.9 g/dL (14.0-18.0); Mean Corpuscular HGB Conc 33 g/dL (31-36); Mean Corpuscular Hemoglobin 33 pg (27-31); Mean Corpuscular Volume 102 fL (80-94); Mean Platelet Volume 10.6 fL (7.4-10.4); Platelet Count 308 10^3/uL (150-450); Red Blood Count 3.89 10^6 /uL (4.18-5.48); Red Cell Distribution Width 15 % (10-15); White Blood Count 18.9 10^3/uL (3.5-10.8)
[2019-11-04 00:26] LABS: Lymphocyte % 9.3 %
[2019-11-04 00:27] LABS: Albumin 4.4 g/dL (3.2-5.2); Albumin/Globulin Ratio 1.4 (1-3); Alkaline Phosphatase 4 U/L (34-104); Anion Gap 17 mmol/L (2-11); BUN/Creatinine Ratio 17.7 (8-20); Blood Urea Nitrogen 17 mg/dL (6-24); CO2 Carbon Dioxide 15 mmol/L (22-32); Calcium 8.9 mg/dL (8.6-10.3); Chloride 102 mmol/L (101-111); EGFR Non-African American 80.2 (>60); Globulin 3.1 g/dL (2-4); Glucose 122 mg/dL (70-100); Sodium 134 mmol/L (135-145); Total Protein 7.5 g/dL (6.4-8.9)
[2019-11-04 00:28] LABS: ALT 16 U/L (7-52); AST 35 U/L (13-39); Acetaminophen < 15 mcg/mL; Alcohol, S 291 mg/dL (<10); Salicylate < 10.00 mg/dL (<30)
== END | disposition home or self-care (01) ==
LOC: ED 07:04